=== PATIENT | male | born 1960 | race Caucasian/White ===

== ENCOUNTER 2022-12-15 23:05 | Observation (INO) | payer BC ==
[~2022-12-15] VITALS: Ht 177.8 cm; Wt 116.0 kg
[~2022-12-15 23:05] MED LIST: AMOX500 PO; ATOR40TA PO; Bactrim Ds Tab1 EACH PO; CEPH500 PO; HYDACE5 PO; LISI5 PO
[2022-12-15 23:51] LABS: BASOPHILS ABSOLUTE AUTO 0.04 K/mm3 (0.00-0.23); BASOPHILS PERCENT AUTO 0 % (0-2); EOSINOPHILS ABSOLUTE AUTO 0.03 K/mm3 (0.00-0.68); EOSINOPHILS PERCENT AUTO 0 % (0-6); Hematocrit 40.3 % (37.0-53.0); Hemoglobin 14.2 g/dL (13.5-17.5); IMMATURE GRAN ABSOLUTE AUTO 0.04 K/mm3 (0.00-0.10); IMMATURE GRAN PERCENT AUTO 0 % (0-1); LYMPHOCYTES PERCENT AUTO 18 % (21-46); MONOCYTES ABSOLUTE AUTO 0.56 K/mm3 (0.16-1.47); MONOCYTES PERCENT AUTO 6 % (4-13); Mean Corpuscular HGB 32.5 pg (26.0-34.0); Mean Corpuscular HGB Conc 35.2 g/dL (31.5-36.5); Mean Corpuscular Volume 92 fL (80-100); Mean Platelet Volume 9.5 fL (9.1-12.4); NEUTROPHILS ABSOLUTE AUTO 7.08 K/mm3 (1.96-9.15); NEUTROPHILS PERCENT AUTO 75 % (41-73); Platelet Count 234 K/mm3 (150-400); RDW Coefficient Variation 11.7 % (11.7-14.2); RDW Standard Deviation 39.5 fL (35.1-46.3); Red Blood Cell Count 4.37 M/mm3 (4.30-5.90); White Blood Cell Count 9.45 K/mm3 (4.00-11.30)
[2022-12-16 00:17] LABS: Albumin, Blood 3.5 g/dL (3.4-5.0); Albumin/Globulin Ratio 0.9 (0.8-1.8); Bilirubin, Total 0.7 mg/dL (0.1-1.0); Bun/Creatinine Ratio 14.5 (12.0-20.0); Calcium, Blood 8.8 mg/dL (8.5-10.1); Creatinine, Blood 0.83 mg/dL (0.60-1.20); Globulin, Blood 3.7 g/dL (2.2-4.0); Magnesium, Blood 2.1 mg/dL (1.6-2.4); Potassium, Blood 3.5 mmol/L (3.5-5.5); Total Protein, Blood 7.2 g/dL (6.4-8.2)
[2022-12-16 06:13] LABS: Anti-Xa UFH, PHA Monitoring <0.10 IU/mL; International Normalized Ratio 1.13; Prothrombin Time Results 11.8 Sec (9.7-11.5)
[2022-12-16 06:30] LABS: BASOPHILS ABSOLUTE AUTO 0.03 K/mm3 (0.00-0.23); BASOPHILS PERCENT AUTO 0 % (0-2); EOSINOPHILS ABSOLUTE AUTO 0.02 K/mm3 (0.00-0.68); EOSINOPHILS PERCENT AUTO 0 % (0-6); Hemoglobin 14.8 g/dL (13.5-17.5); IMMATURE GRAN ABSOLUTE AUTO 0.02 K/mm3 (0.00-0.10); IMMATURE GRAN PERCENT AUTO 0 % (0-1); LYMPHOCYTES ABSOLUTE AUTO 1.97 K/mm3 (0.84-5.20); LYMPHOCYTES PERCENT AUTO 21 % (21-46); MONOCYTES PERCENT AUTO 7 % (4-13); Mean Corpuscular HGB 32.3 pg (26.0-34.0); Mean Corpuscular HGB Conc 35.2 g/dL (31.5-36.5); Mean Corpuscular Volume 92 fL (80-100); Mean Platelet Volume 9.5 fL (9.1-12.4); NEUTROPHILS ABSOLUTE AUTO 6.59 K/mm3 (1.96-9.15); NEUTROPHILS PERCENT AUTO 72 % (41-73); Platelet Count 260 K/mm3 (150-400); RDW Coefficient Variation 11.8 % (11.7-14.2); RDW Standard Deviation 39.7 fL (35.1-46.3); Red Blood Cell Count 4.58 M/mm3 (4.30-5.90); White Blood Cell Count 9.23 K/mm3 (4.00-11.30)
[2022-12-16 06:44] LABS: Albumin, Blood 3.7 g/dL (3.4-5.0); Bun/Creatinine Ratio 14.2 (12.0-20.0); Creatinine, Blood 0.78 mg/dL (0.60-1.20); Globulin, Blood 3.7 g/dL (2.2-4.0); Potassium, Blood 3.9 mmol/L (3.5-5.5); Total Protein, Blood 7.4 g/dL (6.4-8.2)
[2022-12-16 06:59] LABS: CPK Creatine Kinase 70 U/L (39-308)
[2022-12-16 15:07] LABS: CPK Creatine Kinase 60 U/L (39-308)
--- NOTE | 2022-12-16 17:03 | NUR ---
PT ARRIVED TO ROOM PCU12 APROX 0750 THIS AM. PT A&OX4, ABLE TO STAND AND PIVOT FROM GURNEY TO BED. PT HAS HAD NO C/O CHEST PAIN OR PALPITATIONS SINCE ARRIVAL TO PCU THIS AM. VSS. TROPONIN HAS TRENDED DOWN TO 41 THIS AFTERNOON. PLAN FOR STRESS TEST TOMORROW PER DR CARBAJAL. PT ABLE TO USE CALL LIGHT FOR NEEDS, CALL LIGHT IN REACH, WILL CONTINUE TO MONITOR AND GIVE REPORT TO NOC SHIFT RN.
[2022-12-17 03:58] LABS: Source, Urine Clean Catch
[2022-12-17 04:02] LABS: Appearance, Urine Clear (Clear); Bilirubin, Urine Neg (Neg); Blood, Urine 4+ (Neg); Color, Urine Yellow (P-Yellow); Glucose Qualitative, Urine Neg (Neg); Ketones, Urine Neg (Neg); Leukocyte Esterase, Urine Neg (Neg); Nitrite, Urine Neg (Neg); Protein, Urine Neg (Neg); Urobilinogen, Urine NORM (Normal)
[2022-12-17 04:23] LABS: Bacteria Rare /hpf; Squamous Epithelial Cells Rare /hpf (Few); White Blood Cells, Urine 0-2 /hpf (0-5)
--- NOTE | 2022-12-17 06:01 | NUR ---
SHIFT SUMMARY ASSUMED CARE OF PT AT 1900. PT IS A/OX4. HEART SOUNDS REGULAR. LUNG SOUNDS CLEAR. PT ASKS LOTS OF QUESTIONS ABOUT CLINCAL ILLNESS AND WILLING TO LEARN. INDEPENDENT IN ROOM. NO ACUTE CHAGNES, NO CHEST PRESSURE.
[2022-12-17 07:45] LABS: BASOPHILS ABSOLUTE AUTO 0.04 K/mm3 (0.00-0.23); BASOPHILS PERCENT AUTO 1 % (0-2); EOSINOPHILS ABSOLUTE AUTO 0.09 K/mm3 (0.00-0.68); EOSINOPHILS PERCENT AUTO 1 % (0-6); Hematocrit 39.8 % (37.0-53.0); Hemoglobin 13.4 g/dL (13.5-17.5); IMMATURE GRAN ABSOLUTE AUTO 0.01 K/mm3 (0.00-0.10); IMMATURE GRAN PERCENT AUTO 0 % (0-1); LYMPHOCYTES ABSOLUTE AUTO 2.75 K/mm3 (0.84-5.20); LYMPHOCYTES PERCENT AUTO 40 % (21-46); MONOCYTES ABSOLUTE AUTO 0.54 K/mm3 (0.16-1.47); MONOCYTES PERCENT AUTO 8 % (4-13); Mean Corpuscular HGB 31.9 pg (26.0-34.0); Mean Corpuscular HGB Conc 33.7 g/dL (31.5-36.5); Mean Corpuscular Volume 95 fL (80-100); NEUTROPHILS ABSOLUTE AUTO 3.54 K/mm3 (1.96-9.15); NEUTROPHILS PERCENT AUTO 51 % (41-73); Platelet Count 256 K/mm3 (150-400); RDW Standard Deviation 41.7 fL (35.1-46.3); White Blood Cell Count 6.97 K/mm3 (4.00-11.30)
[2022-12-17 07:53] LABS: Bun/Creatinine Ratio 17.7 (12.0-20.0); Calcium, Blood 8.7 mg/dL (8.5-10.1); Creatinine, Blood 0.96 mg/dL (0.60-1.20); Potassium, Blood 3.7 mmol/L (3.5-5.5)
--- NOTE | 2022-12-17 12:07 | NUR ---
PATIENT EATING LUNCH, PATIENT COMPLAINS OF NAUSEA OFFERED MEDICATION TO HELP WITH NAUSEA PATIENT DECLINED, PATIENT GIVEN MIRALAX BOWEL PREP.
--- NOTE | 2022-12-17 18:46 | NUR ---
ASSUMED CARE OF PT AT 0700. PT HAD FIRST PART OF STRESS TEST THIS AM, TOLERATED WELL. NO C/O CHEST PAIN OR PRESSURE T/O THE DAY. PLAN FOR NPO AFTER MIDNIGHT AND SECOND HALF OF STRESS TEST TOMORROW AND POSSIBLY D/C HOME. PT ABLE TO USE CALL LIGHT FOR NEEDS, CALL LIGHT IN REACH, WILL CONTINUE TO MONITOR AND GIVE REPORT TO NOC SHIFT RN.
--- NOTE | 2022-12-18 05:28 | NUR ---
SHIFT SUMMARY PT IS A&OX4, COMPLETELY IND IN HIS ROOM, HAS HAD NO COMPLAINTS T/O THE SHIFT, AND HAS BEEN SB 50''S-70'S ON TELE. HE CALLS APPROPRIATELY, AND HAS RESTED MOST OF THE NIGHT. HE WAS MADE NPO AT 0000 FOR HIS STRESS TEST. BED IS IN LOW, CALL LIGHT IS IN REACH, AND SLIP RESISTANT SOCKS WERE PLACED. WILL CONTINUE TO MONITOR UNTIL SHIFT REPORT IS GIVEN TO THE ONCOMING SHIFT RN. SEE NOTES FOR ANY UPDATES.
[2022-12-18 06:02] LABS: BASOPHILS ABSOLUTE AUTO 0.03 K/mm3 (0.00-0.23); BASOPHILS PERCENT AUTO 0 % (0-2); EOSINOPHILS ABSOLUTE AUTO 0.08 K/mm3 (0.00-0.68); EOSINOPHILS PERCENT AUTO 1 % (0-6); Hematocrit 38.3 % (37.0-53.0); Hemoglobin 13.3 g/dL (13.5-17.5); IMMATURE GRAN ABSOLUTE AUTO 0.01 K/mm3 (0.00-0.10); IMMATURE GRAN PERCENT AUTO 0 % (0-1); LYMPHOCYTES ABSOLUTE AUTO 1.83 K/mm3 (0.84-5.20); LYMPHOCYTES PERCENT AUTO 26 % (21-46); MONOCYTES ABSOLUTE AUTO 0.65 K/mm3 (0.16-1.47); MONOCYTES PERCENT AUTO 9 % (4-13); Mean Corpuscular HGB 32.1 pg (26.0-34.0); Mean Corpuscular HGB Conc 34.7 g/dL (31.5-36.5); Mean Corpuscular Volume 93 fL (80-100); Mean Platelet Volume 9.4 fL (9.1-12.4); NEUTROPHILS ABSOLUTE AUTO 4.55 K/mm3 (1.96-9.15); NEUTROPHILS PERCENT AUTO 64 % (41-73); Platelet Count 229 K/mm3 (150-400); RDW Coefficient Variation 11.8 % (11.7-14.2); RDW Standard Deviation 40.3 fL (35.1-46.3); Red Blood Cell Count 4.14 M/mm3 (4.30-5.90); White Blood Cell Count 7.15 K/mm3 (4.00-11.30)
[2022-12-18 06:15] LABS: Bun/Creatinine Ratio 19.5 (12.0-20.0); Calcium, Blood 8.9 mg/dL (8.5-10.1); Creatinine, Blood 0.82 mg/dL (0.60-1.20); Potassium, Blood 3.9 mmol/L (3.5-5.5)
[2022-12-18] MEDS ORDERED: ESCI20 PO (12:08)
--- NOTE | 2022-12-18 13:38 | NUR ---
SHIFT/DISCHARGE SUMMARY PT WAS A/O X4, PLEASANT AND COOPERATIVE. >92% ON RA. NO RESPIRATORY DISTRESS NOTED. PT ON TELEMETRY, HR 50-70'S NSR. DENIES ANY ANGINA OR CHEST PRESSURE, OR ANY SOB. PT INDEPENDENT IN ROOM. PT HAD STRESS TEST PERFORMED THIS MORNING AND TOLERATED WELL FOR THE MOST PART. PT C/O MINOR ANXIETY DURING PROCEDURE. PT D/C'D @1220, REQUESTED TO AMBULATE OUT OF ROOM AND WAS ACCOMPANIED BY HIS .
== END 2022-12-18 12:25 | disposition home or self-care (01) ==
LOC: ER 23:05 → PCU 23:06 → ERHOLD 23:06 → PCU 12-16 08:43
PROVIDERS: Emergency Medicine; Internal Medicine; ADMIT Internal Medicine
DX: R07.89 Other chest pain (principal); R77.8 Other specified abnormalities of plasma proteins; I25.10 Atherosclerotic heart disease of native coronary artery without angina pectoris; I10 Essential (primary) hypertension; E66.9 Obesity, unspecified; N40.0 Benign prostatic hyperplasia without lower urinary tract symptoms; E78.5 Hyperlipidemia, unspecified; Z88.0 Allergy status to penicillin
CPT/HCPCS: 36415; 71045; 78452; 80048; 80053; 81001; 82550; 83735; 83880; 84484; 85025; 85379; 85520; 85610; 85730; 93005; 93010; 93017; 99285-25; A9270; A9500; J0280; J1644; J1650; J2785

== ENCOUNTER → 2025-06-07 | Outpatient (CLI) | payer OTHER ==
[~2025-06-07] MED LIST changes: +ESCI20 PO
[2025-06-07 13:28] LABS: BASOPHILS ABSOLUTE AUTO 0.03 K/mm3 (0.00-0.23); BASOPHILS PERCENT AUTO 0 % (0-2); EOSINOPHILS ABSOLUTE AUTO 0.02 K/mm3 (0.00-0.68); EOSINOPHILS PERCENT AUTO 0 % (0-6); Hematocrit 42.5 % (37.0-53.0); Hemoglobin 14.9 g/dL (13.5-17.5); IMMATURE GRAN ABSOLUTE AUTO 0.02 K/mm3 (0.00-0.10); IMMATURE GRAN PERCENT AUTO 0 % (0-1); LYMPHOCYTES ABSOLUTE AUTO 1.30 K/mm3 (0.84-5.20); LYMPHOCYTES PERCENT AUTO 15 % (21-46); MONOCYTES ABSOLUTE AUTO 0.54 K/mm3 (0.16-1.47); MONOCYTES PERCENT AUTO 6 % (4-13); Mean Corpuscular HGB Conc 35.1 g/dL (31.5-36.5); Mean Corpuscular Volume 92 fL (80-100); NEUTROPHILS ABSOLUTE AUTO 6.55 K/mm3 (1.96-9.15); NEUTROPHILS PERCENT AUTO 77 % (41-73); NRBC ABSOLUTE 0.00 K/mm3 (0.00-0.02); NRBC Auto 0.0 /100 WBC (0.0-0.2); Platelet Count 250 K/mm3 (150-400); RDW Coefficient Variation 12.3 % (11.7-14.2); RDW Standard Deviation 40.9 fL (35.1-46.3)
[2025-06-07 13:43] LABS: Alanine Aminotransfer (ALT/SGP 28.0 U/L (12-78); Albumin, Blood 3.7 g/dL (3.4-5.0); Albumin/Globulin Ratio 0.9 (0.8-1.8); Anion Gap 14.0 mmol/L (3-11); Aspartate Aminotrans (AST/SGOT 19.0 U/L (12-37); Bilirubin, Total 0.8 mg/dL (0.1-1.0); Blood Urea Nitrogen 22.0 mg/dL (8-24); CO2, Blood 25.0 mmol/L (21-32); Calcium, Blood 9.6 mg/dL (8.5-10.1); Chloride, Blood 106.0 mmol/L (98-108); Creatinine, Blood 0.88 mg/dL (0.60-1.20); Globulin, Blood 4.0 g/dL (2.2-4.0); Glucose, Blood 103.0 mg/dL (70-99); Potassium, Blood 3.8 mmol/L (3.5-5.5); Sodium, Blood 141.0 mmol/L (136-145); Total Protein, Blood 7.7 g/dL (6.4-8.2)
== END ==
LOC: LAB SHORT 13:24 → LAB 13:24
PROVIDERS: Physician Assistant
DX: R07.89 Other chest pain (principal)
CPT/HCPCS: 80053; 84484; 85025